=== PATIENT | male | born 1950 | race Caucasian/White ===

== ENCOUNTER 2020-01-11 02:38 | Outpatient (CLI) | payer MEDICARE, OTHER, SELFPAY ==
[2020-01-11 16:34] LABS: SARS-CoV-2 RNA PCR Negative
== END 2020-01-11 02:39 | disposition home or self-care (01) ==
LOC: ANHCOVIDDT 02:38
PROVIDERS: PCP Family Medicine; Visit Provider Internal Medicine Gastroenterology
DX: Z01.812 Encounter for preprocedural laboratory examination (principal); Z20.828 Contact with and (suspected) exposure to other viral communicable diseases
CPT/HCPCS: 87635; C9803; U0003

== ENCOUNTER 2020-01-13 00:24 | Day surgery (SDC) | payer MEDICARE, OTHER, SELFPAY ==
[2020-01-04 12:55] VITALS: BMI 35.4
--- NOTE | 2020-01-13 08:57 | PM.HPGS ---
History of Present Illness History of Present Illness Consent: Risks, benefits, and alternatives have been discussed and questions answered. Patient agrees to proceed with procedure. Chief complaint: History of Polyps Narrative: Marciano Pride is a 69 year old male here for screening colonoscopy. He has a history of polyps PMFSH Past Medical History Medical History Bladder cancer Diabetes Glaucoma History of bladder cancer Hypertension Family History Family History Mother Hypertension Family history of coronary artery disease Father Family history of diabetes mellitus in first degree relative Family history of coronary artery disease Other Diabetes mellitus Social History Social History Smoking status: Former smoker Second hand tobacco smoke exposure: No Smoking end date: 04/22/06 Alcohol intake: never Substance use: never Substance use type: does not use Last use: 2004 Living arrangements: with family Gender identity (if verbalized by the patient): Male Sexual Orientation (if Verbalized by the Patient): Straight or Heterosexual Spiritual care concerns: No Meds Home Medications and Allergies Home Medications Medication Instructions Recorded Confirmed Type fenofibrate 160 mg tablet 160 mg PO DAILY #90 tablet 05/14/19 01/04/20 Rx metformin 1,000 mg tablet 1,000 mg PO BID #180 tablet 05/14/19 01/04/20 Rx chlorthalidone 25 mg tablet 12.5 mg PO DAILY #45 tablet 07/28/19 01/04/20 Rx aspirin 325 mg tablet,delayed 325 mg PO DAILY #90 tablet 10/09/19 01/04/20 Rx release blood sugar diagnostic #100 each 10/09/19 Rx glimepiride 2 mg tablet 1 mg PO BID #90 tablet 10/09/19 01/04/20 Rx lancets 28 gauge #200 each 10/12/19 Rx lisinopril 30 mg tablet 30 mg PO DAILY #90 tablet 12/15/19 01/04/20 Rx simvastatin 40 mg tablet 40 mg PO DAILY #90 tablet 12/15/19 01/04/20 Rx sitagliptin 100 mg tablet 100 mg PO DAILY #90 tablet 12/15/19 01/04/20 Rx brimonidine-timolol [Combigan] 1 drp OPHTHALMIC (EYE) Q12H 01/04/20 01/04/20 History empagliflozin [Jardiance] 25 mg PO DAILY 01/04/20 01/04/20 History Allergies Allergy/AdvReac Type Severity Reaction Status Date / Time No Known Allergies Allergy Verified 01/04/20 12:47 Exam Resp: Auscultation: clear to auscultation bilaterally Cardio: Rate: regular rate Rhythm: regular rhythm GI: GI Palp: Yes Soft to palpation and No Tenderness to palpation present (GI) Assessment and Plan Assessment and plan (1) History of colon polyps: Code(s): Z86.010 - Personal history of colonic polyps Status: Acute Assessment and Plan: Colonoscopy with possible biopsy or polypectomy or cautery or injection of substances.
[2020-01-13 09:13] VITALS: BP 135/93; PULSE 74; RESP 18; TEMP 36.6; O2SAT 100; BMI 36.0
--- NOTE | 2020-01-13 09:31 | WPDANESEPPF ---
Anes - Initial Pre Proc Eval Procedure: Operation Date: 01/13/20 09:30 Proposed Procedures p Screening Colonoscopy - Virgilio Gonzalez MD Date/Time: 01/13/20 09:31 Surgeon: Virgilio Gonzalez MD Pre Op Diagnosis: History of Polyps Patient Data Age: 69 Gender: M Height: 5 ft 10 in Weight: 113.8 kg Last Vital Signs Temp 98 F 01/13/20 09:13 Pulse 74 01/13/20 09:13 Resp 18 01/13/20 09:13 BP 135/93 H 01/13/20 09:13 Pulse Ox 100 01/13/20 09:13 Allergies Allergy/AdvReac Type Severity Reaction Status Date / Time No Known Allergies Allergy Verified 01/13/20 08:59 Home Medications Medication Instructions Recorded Confirmed Type fenofibrate 160 mg tablet 160 mg PO DAILY #90 tablet 05/14/19 01/13/20 Rx metformin 1,000 mg tablet 1,000 mg PO BID #180 tablet 05/14/19 01/13/20 Rx chlorthalidone 25 mg tablet 12.5 mg PO DAILY #45 tablet 07/28/19 01/13/20 Rx aspirin 325 mg tablet,delayed 325 mg PO DAILY #90 tablet 10/09/19 01/13/20 Rx release blood sugar diagnostic #100 each 10/09/19 Rx glimepiride 2 mg tablet 1 mg PO BID #90 tablet 10/09/19 01/13/20 Rx lancets 28 gauge #200 each 10/12/19 Rx lisinopril 30 mg tablet 30 mg PO DAILY #90 tablet 12/15/19 01/13/20 Rx simvastatin 40 mg tablet 40 mg PO DAILY #90 tablet 12/15/19 01/13/20 Rx sitagliptin 100 mg tablet 100 mg PO DAILY #90 tablet 12/15/19 01/13/20 Rx brimonidine-timolol [Combigan] 1 drp OPHTHALMIC (EYE) Q12H 01/04/20 01/13/20 History empagliflozin [Jardiance] 25 mg PO DAILY 01/04/20 01/13/20 History Patient hx anesthesia problems: none Family hx anesthesia problems: none PMFSH Past Medical History Medical History Bladder cancer Diabetes Glaucoma History of bladder cancer Hypertension Family History Family History Mother Hypertension Family history of coronary artery disease Father Family history of diabetes mellitus in first degree relative Family history of coronary artery disease Other Diabetes mellitus Social History Social History Smoking status: Former smoker Second hand tobacco smoke exposure: No Smoking end date: 04/22/06 Alcohol intake: never Substance use: never Substance use type: does not use Last use: 2004 Living arrangements: with family Gender identity (if verbalized by the patient): Male Sexual Orientation (if Verbalized by the Patient): Straight or Heterosexual Spiritual care concerns: No Anes - Eval Final PreProcedure Day of Procedure 01/13/20 09:31 Patient weight: obese Heart: regular rate and rhythm Lungs: clear to auscultation Airway: Mallampati scale class II Neurological: alert and oriented Last oral intake: >/= 8 hours ASA classification: III Emergent: no Anesthetic plan: proceed Anesthesia type and monitoring: general GIVS and standard monitoring Informed Consent: The patient's anesthetic plan and its attendant risks and benefits were discussed with the patient/family/POA. Questions were solicited and answers provided to the satisfaction of the patient/family/POA.
[2020-01-13 09:33] LABS: Glucose Point of Care 162 (65-105)
[2020-01-13] MEDS: LACTATED RINGERS 1,000 ML 150 ML IV CONT (09:34)
[2020-01-13 10:02] VITALS: BP 90/42; PULSE 81; RESP 16; O2SAT 97
[2020-01-13 10:12] VITALS: BP 108/54; PULSE 71; RESP 16; O2SAT 99
[2020-01-13 10:22] VITALS: BP 126/74; PULSE 72; RESP 16; O2SAT 99
== END 2020-01-13 10:41 | disposition home or self-care (01) ==
PROVIDERS: PCP Family Medicine; Visit Provider Internal Medicine Gastroenterology
PROC: 0DJD8ZZ Inspection of Lower Intestinal Tract, Via Natural or Artificial Opening Endoscopic (ICD-10-PCS; CPT 45378; principal; 2020-01-13 09:30)
DX: Z12.11 Encounter for screening for malignant neoplasm of colon (principal); D12.8 Benign neoplasm of rectum; K57.30 Diverticulosis of large intestine without perforation or abscess without bleeding; Z86.010 Personal history of colon polyps; I10 Essential (primary) hypertension; E11.9 Type 2 diabetes mellitus without complications; Z85.51 Personal history of malignant neoplasm of bladder; H40.9 Unspecified glaucoma; Z87.891 Personal history of nicotine dependence; Z79.84 Long term (current) use of oral hypoglycemic drugs; Z79.82 Long term (current) use of aspirin; E66.9 Obesity, unspecified; Z68.36 Body mass index [BMI] 36.0-36.9, adult
CPT/HCPCS: 45385; 88305; J2001; J2704; J7120

== ENCOUNTER 2021-10-03 13:41 | Outpatient (CLI) | payer MEDICARE, OTHER, SELFPAY ==
--- NOTE | ~2021-10-03 | US_ITS ---
EXAMINATION: US soft tissue LE RT DATE: 10/03/2021 14:58 INDICATION: Localized swelling, mass and lump at the posterolateral right thigh. TECHNIQUE: Multiple grayscale and Doppler ultrasound images of the region of concern at the posterola teral right thigh were obtained. COMPARISON: None FINDINGS: There is a 2.7 x 2.0 x 0.9 cm heterogeneously hypoechoic lesion with posterior acoustic enhancement l ocated in the subcutaneous fat at the region of concern. Hypoechoic reticular pattern of edema in th e subcutaneous fat surrounding the lesion. There is also surrounding hyperemia on color Doppler suggesting inflammatory etiology. On cine graysc phuong images there is a hypoechoic tract extending to the skin surface. The superficial margin of the l esion is 3 mm from the skin surface. IMPRESSION: 1. The palpable abnormality corresponds to a 2.7 x 2.0 x 0.9 cm likely complex cystic lesion in the s ubcutaneous fat with surrounding hyperemia and edema suggesting inflammatory etiology and with a hypo echoic linear tract extending to the skin surface. Most likely differential would include epidermoid cyst, potentially superinfected; abscess, phlegmonous change or granulomatous reaction related to joanne or penetrating injury and hematoma or fat necrosis in the setting of prior trauma. Reviewed, dictated and finalized at location A. IMPRESSION: 1. The palpable abnormality corresponds to a 2.7 x 2.0 x 0.9 cm likely complex cystic lesion in the subcutaneous fat with surrounding hyperemia and edema sugg esting inflammatory etiology and with a hypoechoic linear tract extending to th e skin surface. Most likely differential would include epidermoid cyst, potenti ally superinfected; abscess, phlegmonous change or granulomatous reaction relat ed to prior penetrating injury and hematoma or fat necrosis in the setting of p rior trauma.
== END 2021-10-03 13:42 | disposition home or self-care (01) ==
PROVIDERS: PCP Family Medicine; Visit Provider Physician Assistant
DX: R22.41 Localized swelling, mass and lump, right lower limb (principal)
CPT/HCPCS: 76882

== ENCOUNTER 2021-10-20 12:40 | Outpatient (CLI) | payer MEDICARE, OTHER, SELFPAY ==
--- NOTE | ~2021-10-20 | US_ITS ---
EXAMINATION: US biopsy st muscle DATE: 10/20/2021 14:20 INDICATION: Subcutaneous mass at the posterolateral right thigh TECHNIQUE: The procedure including the risks and benefits was discussed with the patient. Risks discu ssed included bleeding and infection. The patient understood the risks and agreed to proceed. The sk in overlying the lateral right thigh was prepped and draped in usual sterile fashion. The mass is loc ated along the anterior margin of a region of reddish skin discoloration. An anterior to posterior ap proach was utilized. Anesthetic was administered with 1% lidocaine subcutaneously. An 18 gauge core biopsy needle was advanced under continuous ultrasound observation to the lesion of interest. 3 core biopsy specimens were obtained and placed in formalin. An additional 2 core biopsy specimens were ob tained with a 14-gauge core needle, one of which was sent for Gram stain and cultures. The needle wa s removed and the entry site was cleaned and dressed. Post procedure ultrasound demonstrated no hemo rrhage. FINDINGS: Ultrasound images demonstrate a 2.7 x 2.1 x 0.4 cm hypoechoic lesion in the superficial sub dermal fat at the region of concern. This has decreased approximately 50% in thickness since the prio r study at which time the lesion measured 2.7 x 2.0 x 0.9 cm. Subsequent images demonstrate the biops y needle advanced into the lesion. IMPRESSION: 1. Successful Ultrasound-guided biopsy of 2.7 x 2.1 x 0.4 cm hypoechoic lesion in the subdermal fat a t the posterolateral right thigh.. Reviewed, dictated and finalized at location A. IMPRESSION: 1. Successful Ultrasound-guided biopsy of 2.7 x 2.1 x 0.4 cm hypoechoic lesion in the subdermal fat at the posterolateral right thigh..
== END 2021-10-20 12:41 | disposition home or self-care (01) ==
PROVIDERS: PCP Family Medicine; Visit Provider Surgery
DX: R22.41 Localized swelling, mass and lump, right lower limb (principal)
CPT/HCPCS: 20206; 76942; 87070; 87075; 87205; 88305

== ENCOUNTER 2021-11-09 15:16 | Outpatient (CLI) | payer MEDICARE, OTHER, SELFPAY ==
--- NOTE | 2021-11-09 15:26 | ECG_ITS ---
Measurements Intervals [place] Rate: 90 P: -47 PA: 114 QRS: 82 QRSD: 115 T: 82 QT: 363 QTc: 445 Interpretive Statements SINUS RHYTHM WITH SHORT PA INTERVAL INTRAVENTRICULAR CONDUCTION DELAY BORDERLINE ST-T WAVE ABNORMALITY- DIFFUSE LEADS BASELINE ARTIFACT- I, II, AVR, AVL, AVF, V4-V6 BORDERLINE ECG Electronically Signed On 11-09-2021 16:26:09 CDT by Brayden Carbajal D.O.
== END 2021-11-09 15:17 | disposition home or self-care (01) ==
LOC: ANHSURGERY 15:20
PROVIDERS: PCP Family Medicine; Visit Provider Surgery
DX: Z01.810 Encounter for preprocedural cardiovascular examination (principal); I10 Essential (primary) hypertension; E11.9 Type 2 diabetes mellitus without complications
CPT/HCPCS: 93005

== ENCOUNTER 2021-11-15 00:59 | Day surgery (SDC) | payer MEDICARE, OTHER, SELFPAY ==
[2021-11-08 14:45] VITALS: BMI 31.4
--- NOTE | 2021-11-08 15:22 | PC.NURSE ---
Report to the Outpatient Waiting Room, entrance under the green pavilion located off [facility], at time 9:00 on date 11/15/21. OR Time: 11:00. - You and your visitor will be asked a series of questions to screen for COVID 19 for your protection. - Only one visitor is allowed at this time. - The patient visitor is requested to leave or wait in car when not with patient. - A mask is required within the hospital. Patients may have clear liquids (water, carbonated beverages, clear teas, apple juice) until 3 hours prior to surgery with a maximum of 20 ounces. - No food from midnight until time of surgery Take the following medications with a SIP of water the morning of surgery: NONE Medications to discontinue per physician: ASPIRIN Date to take last dose: CHECK WITH DR. VILLASENOR RE: 325MG DOSE (81MG IS OK TO CONTINUE TAKING) Please no make-up, nail amharic, hairspray, perfume, deodorant, or body powder the day of surgery. No jewelry (including any body piercings) or valuables the day of surgery, leave them at home. Please take a shower or bath the night before, or the morning of, surgery with an antibacterial soap. Wear comfortable, loose fitting clothing. - Jewelry must be removed prior to entering the operating room. Rings and piercings that are not removed may be cut off. - The hospital will not accept responsibility for valuables. - Please leave all valuables, including medications, at home the day of surgery. If you are going home after surgery, a licensed wagon driver must drive you home. - NO public transportation without another adult. - We recommend that an adult stay with you for 24 hours following discharge. - We also recommend that you do not drive, make important decision, drink alcoholic beverages, or take any drugs that were not prescribed by your health care provider for at least 24 hours after your discharge time. Follow any additional instructions given to you from your surgeon. If you or anyone in your household have experienced Covid symptoms in the past week, please notify your surgeon or the nurse liaison at the phone number below for possible testing. Telephone instructions given to PT - JORGITO TIWARI and asked if any additional questions and then verbalized understanding. Patient advised to call surgeon office or pre surgery nurse liaison [phone] if any additional questions.
--- NOTE | 2021-11-15 08:01 | WPDHPUPDATE1 ---
History and Physical Update Update Date/Time: 11/15/21 08:01 History and Physical has been reviewed, including an updated exam of the patient. There are NO changes in the patient's condition. Risks, benefits, and alternatives have been discussed and questions answered. Patient agrees to proceed with procedure.
[2021-11-15 09:10] VITALS: BP 145/73; PULSE 80; RESP 18; TEMP 36.6; O2SAT 100
[2021-11-15] MEDS: LACTATED RINGERS 1,000 ML 30 ML IV CONT ×2 (09:35→11:15)
[2021-11-15 09:41] LABS: Glucose Point of Care 154 mg/dl (65-105)
--- NOTE | 2021-11-15 10:13 | WPDANESEPPF ---
Anes - Initial Pre Proc Eval Procedure: Operation Date: 11/15/21 11:00 Proposed Procedures p Drainage and Incisional Biopsy of Right Thigh Mass - Dipesh Reyes MD Date/Time: 11/15/21 10:13 Surgeon: Dipesh Reyes MD Pre Op Diagnosis: Mass Right Thigh Patient Data Age: 71 Gender: M Height: 1.85 m Weight: 108.4 kg Last Vital Signs Temp 36.6 C 11/15/21 09:10 Pulse 80 11/15/21 09:10 Resp 18 11/15/21 09:10 BP 145/73 H 11/15/21 09:10 Pulse Ox 100 11/15/21 09:10 O2 Del Method Room Air 11/15/21 09:10 Allergies Allergy/AdvReac Type Severity Reaction Status Date / Time No Known Allergies Allergy Verified 11/15/21 09:21 Home Medications Medication Instructions Recorded Confirmed Type fenofibrate 160 mg tablet 160 mg PO DAILY #90 tabs 01/13/21 11/15/21 Rx dorzolamide 22.3 mg-timolol 6.8 1 drp ophthalmic (eye) BID #30 mL 02/17/21 11/15/21 Rx mg/mL eye drops aspirin 325 mg tablet,delayed 325 mg PO DAILY #90 tabs 03/31/21 11/15/21 Rx release chlorthalidone 25 mg tablet 12.5 mg PO DAILY #45 tabs 03/31/21 11/15/21 Rx lancets 28 gauge (FreeStyle #200 ea 03/31/21 11/15/21 Rx Lancets) lisinopril 30 mg tablet 30 mg PO DAILY #90 tabs 03/31/21 11/15/21 Rx metformin 1,000 mg tablet 1,000 mg PO BID #180 tabs 03/31/21 11/15/21 Rx simvastatin 40 mg tablet 40 mg PO DAILY #90 tabs 03/31/21 11/15/21 Rx sitagliptin 100 mg tablet (Januvia) 100 mg PO DAILY #90 tabs 03/31/21 11/15/21 Rx latanoprost 0.005 % eye drops 1 drp EACH EYE DAILY #7.5 mL 06/26/21 11/15/21 Rx (Xalatan) glimepiride 2 mg tablet 1 mg PO BID #90 tabs 07/10/21 11/15/21 Rx blood sugar diagnostic (FreeStyle #100 ea 09/11/21 11/15/21 Rx Lite Strips) empagliflozin 25 mg tablet 25 mg PO DAILY #90 tabs 09/11/21 11/15/21 Rx (Jardiance) Laboratory Tests 11/15/21 09:36 POC Capillary Glucose 154 mg/dl H mg/dl (65-105) Patient hx anesthesia problems: none Family hx anesthesia problems: none Results Review: All pre-operative results and documents have been reviewed as part of the pre-operative evaluation. [facility] Past Medical History Medical History Bladder cancer Chronic kidney disease, stage 3 unspecified Diabetes Glaucoma History of bladder cancer Hypertension Obesity Surgical History Surgical History History of bladder surgery 2007- Refugio Johnson Family History Family History Mother Hypertension Family history of coronary artery disease Father Family history of diabetes mellitus in first degree relative Family history of coronary artery disease Other Diabetes mellitus Social History Social History Social History: Patient drinks one diet Pepsi every 2-3 days. Smoking packs per day: 1 Smoking cigarettes per day: 20.0 Years smoked: 20 Smoking pack-years: 20.00 Smoking status: Former smoker Tobacco type: cigarettes Second hand tobacco smoke exposure: No Smoking end date: 04/22/97 Alcohol intake: current Alcohol use details: RARE Substance use: never Substance use type: does not use Last use: 2004 Living arrangements: with family Additional living arrangements comments: two people in the home. 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
[2021-11-15] MEDS: ceFAZolin 2 GM/D5W 50 ML 2 GM/50 ML BAG IVPB (10:35)
[2021-11-15] MEDS: BUPIVACAINE/EPINEPHRINE 0.25% 50 ML VIAL INFILTRATE (11:05)
[2021-11-15 11:15] VITALS: BP 116/64; PULSE 67; RESP 12; O2SAT 97
[2021-11-15 11:24] LABS: Glucose Point of Care 130 mg/dl (65-105)
--- NOTE | 2021-11-15 11:28 | W.PM.PROC2 ---
Procedure Note - Detailed Date of Procedure 11/15/21 Pre-op Diagnosis Soft tissue mass right posterior thigh Post-op Diagnosis Other (Infected epithelial inclusion cyst right posterior thigh) Procedure Performed Incisional drainage of infected cyst, incisional biopsy posterior thigh mass Surgeon Dipesh Reyes MD Director Digital [employer] Anesthesia General (G IV S) and Local (0.25% bupivacaine with epinephrine) Indications Patient is a 71-year-old man who presented with a soft tissue mass of the right posterior thigh. When I initially saw him this was a hardened mass with some bruising and hemosiderin deposition. He was sent for ultrasound-guided core biopsy. At the core biopsy there was either necrotic material or cyst material predominantly in the lesion. The core biopsy itself showed acute and chronic inflammation of skin and subcutaneous. Clinically, the lesion was concerning for a neoplasm. He does have some soft or fluctuant areas now to the mass. My suspicion is this is a chronically infected epithelial inclusion cyst. He is taken to surgery now for incisional biopsy as well as drainage. Findings Chronic inflammation but did appear to have some of the outer fibrotic material of an inclusion cyst. No purulent fluid was found. The inner aspect of the wound was chronically inflamed. No gross signs of malignancy were noted. Description of Procedure The patient was taken to surgery and anesthesia was introduced. He was placed in left lateral decubitus position with the right posterior thigh exposed. Prep and drape was carried out. I measured the lesion before proceeding. It was 5 x 4 cm. I infiltrated local all around the area of the lesion. I also infiltrated local over the apex of the soft tissue mass including the 2 fluctuant areas. I then made a longitudinal incision that included the fluctuant areas. I excised all the skin and portion of the wall of the mass. It did appear to be an inclusion cyst. This was sent to pathology in formalin. The underlying cavity was chronically inflamed. It was quite vascular. I initially packed it with 1/2 inch iodoform Nu Gauze. Unfortunately this bled through. I then tried to cauterize areas of the wound but it was still oozing blood. I then used Surgiflo and held gentle pressure. This was successful in achieving hemostasis. The wound was then dressed with fluffs and Medipore tape. The patient was taken to outpatient recovery in good condition. Sponge and needle counts were correct x2. Estimated Blood Loss -5 Drains No Packing No Pathology Yes (Soft tissue mass right posterior thigh) Complications No immediate complications Condition Stable Disposition Same day [facility] Billing Surgery - Charge Forward: Surgery Billing (Incision and drainage with incisional biopsy soft tissue mass right posterior thigh)
[2021-11-15 11:45] VITALS: BP 123/67; PULSE 72; RESP 12
[2021-11-15 12:05] VITALS: BP 118/62; PULSE 75; RESP 12
== END 2021-11-15 12:15 | disposition home or self-care (01) ==
PROVIDERS: PCP Family Medicine; Visit Provider Surgery
PROC: (CPT 11106; principal; 2021-11-15 11:00)
DX: L72.0 Epidermal cyst (principal); L08.9 Local infection of the skin and subcutaneous tissue, unspecified; I12.9 Hypertensive chronic kidney disease with stage 1 through stage 4 chronic kidney disease, or unspecified chronic kidney disease; E11.22 Type 2 diabetes mellitus with diabetic chronic kidney disease; N18.30 Chronic kidney disease, stage 3 unspecified; H40.9 Unspecified glaucoma; Z85.51 Personal history of malignant neoplasm of bladder; Z87.891 Personal history of nicotine dependence; E66.9 Obesity, unspecified; Z68.31 Body mass index [BMI] 31.0-31.9, adult; Z79.82 Long term (current) use of aspirin; Z79.84 Long term (current) use of oral hypoglycemic drugs
CPT/HCPCS: 11106; 82948; 88305; A9270; J0690; J2250; J2704; J3010; J7120

== ENCOUNTER 2022-01-15 08:13 | Outpatient (RCR) | payer MEDICARE, OTHER, SELFPAY ==
[2022-01-15 09:22] VITALS: BMI 33.5
--- NOTE | 2022-01-15 17:00 | WPDWOUNDNOTE ---
Wound Care Note Date/Time: 01/15/22 17:00 History: diabetic, Wound history: biopsy then incision drainage of cyst back right thigh--healing very slowly Wound approximation: No Wound width: wound 50% smaller than when seen in office Drainage: minimal Surrounding tissue appearance: healthy Tunneling: no Percentage granulation tissue: 100 Dressings: continue silver gel daily Assessment and Plan Assessment and plan (1) Open wound of leg: Code(s): S81.809A - Unspecified open wound, unspecified lower leg, initial encounter Status: Chronic Assessment and Plan: healing more appropriately. Cont silver gel daily and cover with bandaid. F/U in 3 weeks in office. (2) Epidermal inclusion cyst: Code(s): L72.0 - Epidermal cyst Status: Chronic Assessment and Plan: infected cyst noted on biopsy with subsequent incision and drainage leaving above open wound. No sign of cyst at present time.
== END 2022-04-02 08:39 | disposition home or self-care (01) ==
LOC: ANHWOC 08:13
PROVIDERS: PCP Family Medicine; Visit Provider Surgery
DX: S81.809D Unspecified open wound, unspecified lower leg, subsequent encounter (principal)
CPT/HCPCS: 99212; G0463

== ENCOUNTER 2023-05-01 12:35 | Outpatient (CLI) | payer MEDICARE, OTHER, SELFPAY ==
--- NOTE | 2023-05-01 12:50 | ECHO_ITS ---
Patient Info Name: Marciano Pride Age: 72 years : 1950 Gender: Male Ht: 71 in Wt: 245 lbs BSA: 2.40 m2 HR: 89 bpm BP: 150 / 76 mmHg Heart Rhythm: Sinus Rhythm Technical Quality: Fair Exam Date: 05/01/2023 12:55 PM Exam Location: Echo Lab Patient Status: Outpatient Admit Date: 05/01/2023 Staff Ordering Physician: Clive Cochran MD Batch Heat Treat Operator: Velma Krueger RDCS Attending Provider: Clive Cochran MD Referring Physician: Dimas MARLEY; Exam Type: CA echo doppler color flow Study Info Indications - murmur Complete two-dimensional, color flow and Doppler transthoracic echocardiogram is performed. Summary 1. Complete two-dimensional, color flow and Doppler transthoracic echocardiogram is performed. 2. Left ventricular chamber dimension is normal. 3. Left ventricular systolic function is normal, estimated at 60-65%. 4. There is mild concentric increased left ventricular wall thickness. 5. The left ventricular diastolic function is grade I diastolic dysfunction. 6. E/e' 11 is mildly elevated. 7. Left atrial chamber dimension is moderately enlarged. 8. Right atrial chamber dimension is moderately enlarged. 9. The aortic valve is not well visualized. Cannot determine number of aortic valve leaflets. 10. There is moderate aortic valve sclerosis. 11. There is mild aortic valve stenosis based on a peak velocity of 230 cm/s, mean gradient of 12 mmHg, and aortic valve area of 2.0 cm2. 12. Mobile mass attached to noncoronary cusp of aortic valve measuring 0.25 cm2 suggestive of vegetation. Consider SY if clinically indicated. 13. No pulmonary hypertension, estimated pulmonary arterial systolic pressure is 20 mmHg. 14. There is trivial pericardial effusion. Left Ventricle E/e' 11 is mildly elevated. Left ventricular chamber dimension is normal. Left ventricular systolic function is normal, estimated at 60-65%. There is mild concentric increased left ventricular wall thickness. The left ventricular diastolic function is grade I diastolic dysfunction. Right Ventricle Right ventricular systolic function is normal and with normal TAPSE 2.0 cm. Right ventricular chamber dimension is normal. Left Atria Left atrial chamber dimension is moderately enlarged. Right Atria Right atrial chamber dimension is moderately enlarged. Aortic Valve The aortic valve is not well visualized. Cannot determine number of aortic valve leaflets. There is mild aortic valve stenosis based on a peak velocity of 230 cm/s, mean gradient of 12 mmHg, and aortic valve area of 2.0 cm2. Mobile mass attached to noncoronary cusp of aortic valve measuring 0.25 cm2 suggestive of vegetation. Consider SY if clinically indicated. There is moderate aortic valve sclerosis. There is no aortic valve regurgitation. Pulmonic Valve There is no pulmonic regurgitation. Mitral Valve There is no mitral valve stenosis. There is no mitral valve regurgitation. Tricuspid Valve There is no tricuspid valve regurgitation. No pulmonary hypertension, estimated pulmonary arterial systolic pressure is 20 mmHg. Pericardium/Pleural There is trivial pericardial effusion. Inferior Vena Cava Normal inferior vena cava with >50% collapse upon inspiration consistent with normal right atrial pressure, 5 mmHg. Aorta The aortic root size at the sinus of Valsalva is normal. Left Ventricular Outflow Tract Name Value Normal LVOT 2
== END 2023-05-01 12:36 | disposition home or self-care (01) ==
LOC: ANHCARD 12:36
PROVIDERS: PCP Family Medicine; Visit Provider Family Medicine
DX: R01.1 Cardiac murmur, unspecified (principal); R93.1 Abnormal findings on diagnostic imaging of heart and coronary circulation; I35.8 Other nonrheumatic aortic valve disorders; I35.0 Nonrheumatic aortic (valve) stenosis; I31.39 Other pericardial effusion (noninflammatory)
CPT/HCPCS: 93306

== ENCOUNTER 2023-05-15 00:46 | Day surgery (SDC) | payer MEDICARE, OTHER, SELFPAY ==
[2023-05-14 13:36] VITALS: BMI 36.3
[2023-05-15] VITALS (8 sets, daily range): BP systolic 109–154; BP diastolic 63–77; PULSE 78–94; RESP 12–21; TEMP 37.4; O2SAT 96–100; BMI 36.3
--- NOTE | 2023-05-15 07:00 | ECHO_ITS ---
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 Procedure Details Risks/benefits/alternative to SY discuss with patient and he is agreeable to procedure. He is monitored with vitals, electrocardiographically and all within normal limits. Benzocaine spray to posterior oropharynx x 2 and viscous lidocaine given. Fentanyl 25 mcg and Versed 1 mg IV given for conscious sedation. SY probe advanced and he swallowed it without incident. Multiple images obtained. Agitated saline injection x 1 given. SY withdrawn and no blood on SY probe tip. He tolerated procedure well with no complications. Summary 1. Transesophageal echocardiogram. 2. Left ventricular chamber dimension is normal. 3. There is moderate concentric increased left ventricular wall thickness. 4. Left ventricular systolic function is normal with an ejection fraction of 60-65%. 5. The left ventricular diastolic function is indeterminate as it was not assessed.. 6. Left atrial chamber dimension is mildly enlarged. 7. Right atrial chamber dimension is mildly enlarged. 8. There is moderate aortic valve sclerosis. There is large sclerocalfication between right and non-coronary cusp. Attached to this is a small calcified mobile mass measuring 0.1 cm2, likely an extension of larger calcification. 9. There is mild aortic valve stenosis. 10. There is trace tricuspid valve regurgitation. Left Ventricle Left ventricular systolic function is normal with an ejection fraction of 60-65%. The left ventricular diastolic function is indeterminate as it was not assessed.. Transesophageal echocardiogram. Left ventricular chamber dimension is normal. There is moderate concentric increased left ventricular wall thickness. Right Ventricle Right ventricular chamber dimension is normal. Right ventricular systolic function is normal. Left Atria Left atrial chamber dimension is mildly enlarged. Right Atria Right atrial chamber dimension is mildly enlarged. Atrial Septum Agitated saline injection opacified right side cardiac chambers without shunt to left side cardiac chambers. Intact interatrial septum visualized by 2D and agitated saline imaging. Atrial Appendage There is no thrombus visualized in the left atrial appendage. Aortic Valve There is moderate aortic valve sclerosis. There is large sclerocalfication between right and non-coronary cusp. Attached to this is a small calcified mobile mass measuring 0.1 cm2, likely an extension of larger calcification. The aortic valve is trileaflet. There is mild aortic valve stenosis. There is no aortic valve regurgitation. Pulmonic Valve There is no pulmonic regurgitation. Mitral Valve There is no mitral valve stenosis. There is no mitral valve regurgitation. Tricuspid Valve There is trace tricuspid valve regurgitation. Pericardium/Pleural There is no pericardial effusion. Inferior Vena Cava Inferior vena cava is not well visualized. Aorta The aortic root size at the sinus of Valsalva
== END 2023-05-15 09:13 | disposition home or self-care (01) ==
PROVIDERS: PCP Family Medicine; Visit Provider Internal Medicine Cardiovascular Disease
PROC: (CPT 93312; principal; 2023-05-15 08:00)
DX: I33.0 Acute and subacute infective endocarditis (principal); I35.8 Other nonrheumatic aortic valve disorders; I35.0 Nonrheumatic aortic (valve) stenosis; I12.9 Hypertensive chronic kidney disease with stage 1 through stage 4 chronic kidney disease, or unspecified chronic kidney disease; E11.22 Type 2 diabetes mellitus with diabetic chronic kidney disease; N18.30 Chronic kidney disease, stage 3 unspecified; E78.2 Mixed hyperlipidemia; G47.33 Obstructive sleep apnea (adult) (pediatric); H40.9 Unspecified glaucoma; Z87.891 Personal history of nicotine dependence; Z79.84 Long term (current) use of oral hypoglycemic drugs; Z79.82 Long term (current) use of aspirin; Z79.85 Long-term (current) use of injectable non-insulin antidiabetic drugs
CPT/HCPCS: 93312; 93320; 93325; J2250; J3010; J7040

== ENCOUNTER 2024-11-18 09:51 | Outpatient (CLI) | payer MEDICARE, OTHER, SELFPAY ==
--- NOTE | ~2024-11-18 | US_ITS ---
EXAMINATION:US venous doppler LE BI INDICATION:Soft tissue disorder TECHNIQUE: Multiple grayscale, color flow and Doppler images of the right and left lower extremity de ep venous systems were obtained and reviewed. COMPARISON:No prior studies for comparison. FINDINGS: The common femoral, superficial femoral and popliteal veins demonstrate normal respiratory variation, augmentation and compressibility. Color flow is also seen within the posterior tibial, pe roneal, greater saphenous and profunda veins. IMPRESSION: 1: No lower extremity deep venous thrombosis. Reviewed, dictated and finalized at location B.
--- OUTSIDE RECORDS SUMMARY | 2024-11-18 10:16 | XMS_ITS | Continuity of Care Document ---
Author Name [facility] Organization [facility] Care Team Providers Care Fundraising Specialist Name Role Phone [facility] Unavailable Unavailable Medications Combined list of outpatient medications from Department of Defense and Veterans Affairs facilities.Medications provided include 1) outpatient medications from the last 15 months, and 2) patient-reported medications. Medication Details Route Status Patient Instructions Prescription Expires Prescription Number Last Dispense Date Ordering Provider Order Date Order Qty Source aspirin EC 325 mg tablet See dose instruct ions in comments , # 90 EA, 2 total refill(s ), Acute Complet ed 07/15/2023 3 2023 90.0 Ambulat ory Pharmac y aspirin EC 325 mg tablet = 1 tab(s), Oral, Daily, # 90 EA, 2 total refill(s ), Soft Stop Oral (given by mouth) Ordered 5 2024 90.0 Ambulat ory Pharmac y aspirin EC 325 mg tablet 325 mg, Oral, Daily, # 90 EA, 2 total refill(s ), Hard Stop Oral (given by mouth) Discont inued 10/30/2023 4 2023 90.0 Ambulat ory Pharmac y aspirin EC 325 mg tablet 325 mg, Oral, Daily, # 90 EA, 2 total refill(s ), Hard Stop Oral (given by mouth) Discont inued 06/29/2024 4 2024 90.0 Ambulat ory Pharmac y chlorthalid one 25 mg tablet See Instruct ions, # 45 EA, 3 total refill(s ), Hard Stop Complet ed 12/25/2023 3 2023 45.0 Ambulat ory Pharmac y chlorthalid one 25 mg tablet See dose instruct ions in comments , # 45 EA, 1 total refill(s ), Acute Complet ed 02/11/2023 3 2022 45.0 Ambulat ory Pharmac y dorzolamide -timolol 2%-0.5% eye drops [10mL] = 1 drop(s), # 20 mL, 2 total refill(s ), Hard Stop Ordered 04/06/2025 5 2024 20.0 Ambulat ory Pharmac y dorzolamide -timolol 2%-0.5% eye drops [10mL] = 1 drop(s), # 20 mL, 2 total refill(s ), Hard Stop Discont inued 06/29/2024 5 2024 20.0 Ambulat ory Pharmac y dorzolamide -timolol 2%-0.5% eye drops [10mL] See Instruct ions, # 20 mL, 3 total refill(s ), Hard Stop Discont inued 04/09/2024 4 2023 20.0 Ambulat ory Pharmac y dorzolamide -timolol 2.23%-0.68% eye drops [10mL] See Instruct ions, # 20 mL, 2 total refill(s ), Acute Complet ed 07/01/2023 3 2023 20.0 Ambulat ory Pharmac y dulaglutide 4.5 mg/0.5 mL pen [4EA=2mL] See Instruct ions, Inject 4.5 mg (0.5 mL) subcutan eously (under the skin) weekly, # 2 mL, 0 total refill(s ), Soft Stop Notes: refriger ate Discont inued 07/10/2024 5 2024 2.0 Ambulat ory Pharmac y dulaglutide 4.5 mg/0.5 mL pen [4EA=2mL] See Instruct ions, Inject 4.5mg subcutan eiously (under the skin) weekly, # 2 mL, 11 total refill(s ), Soft Stop Notes: refriger ate Ordered 5 2024 2.0 Ambulat ory Pharmac y empaglifloz in 25 mg tablet = 1 tab(s), Oral, Daily, # 90 EA, 2 total refill(s ), Soft Stop Oral (given by mouth) Ordered 5 2024 90.0 Ambulat ory Pharmac y fenofibrate 160 mg tablet 160 mg, Oral, Daily, # 90 EA, 3 total refill(s ), Hard Stop Oral (given by mouth) Complet ed 10/01/2023 4 2023 90.0 Ambulat ory Pharmac y fenofibrate 160 mg tablet 160 mg, Oral, Daily, # 90 EA, 2 total refill(s ), Hard Stop Oral (given by mouth) Complet ed 08/13/2024 4 2024 90.0 Ambulat ory Pharmac y fenofibrate 160 mg tablet = 1 tab(s), Oral, Daily, # 90 EA, 2 total refill(s ), Hard Stop Oral (given by mouth) Ordered 04/06/2025 5 2024 90.0 Ambulat ory Pharmac y Freestyle 28g lancets [100EA] See Instruct ions, # 100 EA, 3 total refill(s ), Hard Stop Complet ed 10/01/2023 4 2023 100.0 Ambulat ory Pharmac y Freestyle 28g lancets [100EA] See Instruct ions, # 100 EA, 3 total refill(s ), Hard Stop Complet ed 08/13/2024 4 2024 100.0 Ambulat ory Pharmac y freestyle lite (glucose) test strip [50EA] See Instruct ions, # 100 EA, 2 total refill(s ), Hard Stop Complet ed 12/28/2023 4 2023 100.0 Ambulat ory Pharmac y freestyle lite (glucose) test strip [50EA] = 1 EA, # 100 EA, 2 total refill(s ), Hard Stop Complet ed 09/29/2024 4 2024 100.0 Ambulat ory Pharmac y freestyle lite (glucose) test strip [50] See dose instruct ions in comments , # 100 EA, 1 total refill(s ), Acute Complet ed 04/26/2023 3 01/05/ 2024 100.0 Ambulat ory Pharmac y glimepiride 2 mg tablet See Instruct ions, # 90 EA, 3 total refill(s ), Hard Stop Discont inued 03/03/2024 4 2023 90.0 Ambulat ory Pharmac y glimepiride 2 mg tablet See Instruct ions, # 90 EA, 2 total refill(s ), Acute Complet ed 05/28/2023 3 2023 90.0 Ambulat ory Pharmac y glimepiride 2 mg tablet See Instruct ions, # 90 EA, 3 total refill(s ), Hard Stop Ordered 03/02/2025 5 2024 90.0 Ambulat ory Pharmac y glucose test strip (freestyle lite) See Instruct ions, # 100 EA, 3 total refill(s ), Hard Stop Ordered 06/04/2025 5 2024 100.0 Ambulat ory Pharmac y hydroCHLORO thiazide 12.5 mg tablet = 1 tab(s), Oral, Daily, # 30 EA, 2 total refill(s ), Soft Stop Oral (given by mouth) Discont inued 07/10/2024 5 2024 30.0 Ambulat ory Pharmac y hydroCHLORO thiazide 12.5 mg tablet = 1 tab(s), Oral, Daily, # 90 EA, 3 total refill(s ), Soft Stop Oral (given by mouth) Ordered 5 2024 90.0 Ambulat ory Pharmac y Jardiance 25 mg tablet 25 mg, Oral, Daily, # 90 EA, 2 total refill(s ), Hard Stop Oral (given by mouth) Discont inued 10/30/2023 4 2023 90.0 Ambulat ory Pharmac y Jardiance 25 mg tablet 25 mg, Oral, Daily, # 90 EA, 2 total refill(s ), Hard Stop Oral (given by mouth) Discont inued 06/29/2024 4 2024 90.0 Ambulat ory Pharmac y Jardiance 25 mg tablet See dose instruct ions in comments , # 90 EA, 2 total refill(s ), Acute Complet ed 07/15/2023 3 2023 90.0 Ambulat ory Pharmac y lancet freestyle 28g See Instruct ions, # 100 EA, 2 total refill(s ), Soft Stop Discont inued 09/16/2024 5 2024 100.0 Ambulat ory Pharmac y lancet freestyle 28g See Instruct ions, # 100 EA, 2 total refill(s ), Soft Stop Ordered 5 2024 100.0 Ambulat ory Pharmac y latanoprost 0.005% eye drops [2.5mL] See dose instruct ions in comments , # 8 mL, 3 total refill(s ), Acute Complet ed 09/18/2023 3 2023 7.5 Ambulat ory Pharmac y latanoprost 0.005% eye drops [2.5mL] = 1 drop(s), Eye-Both , Daily, # 7.5 mL, 3 total refill(s ), Hard Stop Both eyes Ordered 03/02/2025 5 2024 7.5 Ambulat ory Pharmac y latanoprost 0.005% eye drops [2.5mL] = 1 drop(s), Eye-Both , Daily, # 8 mL, 3 total refill(s ), Hard Stop Both eyes Discont inued 03/03/2024 4 2023 7.5 Ambulat ory Pharmac y lisinopril 30 mg tablet See Instruct ions, # 90 EA, 2 total refill(s ), Acute Complet ed 07/15/2023 3 2023 90.0 Ambulat ory Pharmac y lisinopril 30 mg tablet See Instruct ions, Oral, Daily, # 90 EA, 2 total refill(s ), Hard Stop Oral (given by mouth) Discont inued 10/30/2023 4 2023 90.0 Ambulat ory Pharmac y lisinopril 30 mg tablet 30 mg, Oral, Daily, # 90 EA, 2 total refill(s ), Hard Stop Oral (given by mouth) Discont inued 06/29/2024 4 2024 90.0 Ambulat ory Pharmac y lisinopril 30 mg tablet = 1 tab(s), Oral, Daily, # 90 EA, 2 total refill(s ), Soft Stop Oral (given by mouth) Ordered 5 2024 90.0 Ambulat ory Pharmac y metFORMIN 1000 mg tablet See dose instruct ions in comments , # 180 EA, 1 total refill(s ), Acute Complet ed 02/11/2023 3 2022 180.0 Ambulat ory Pharmac y metFORMIN 1000 mg tablet See Instruct ions, # 180 EA, 3 total refill(s ), Hard Stop Discont inued 10/30/2023 4 2023 180.0 Ambulat ory Pharmac y metFORMIN 1000 mg tablet = 1 tab(s), Oral, BID, # 180 EA, 3 total refill(s ), Soft Stop Oral (given by mouth) Ordered 5 2024 180.0 Ambulat ory Pharmac y metFORMIN 1000 mg tablet 1000 mg, Oral, BID, # 180 EA, 3 total refill(s ), Hard Stop Oral (given by mouth) Discont inued 09/15/2024 5 2024 180.0 Ambulat ory Pharmac y phenazopyri dine 100 mg oral tablet *NOTE DOSE* TAKE TWO TABLETS BY MOUTH TWICE A DAY, # 60 EA, 2 total refill(s ), Acute Complet ed 11/22/2022 2 2022 60.0 Ambulat ory Pharmac y rosuvastati n 10 mg tablet = 1 tab(s), Oral, Daily, # 90 EA, 3 total refill(s ), Hard Stop Oral (given by mouth) Ordered 04/13/2025 5 2024 90.0 Ambulat ory Pharmac y simvastatin 40 mg tablet See Instruct ions, # 90 EA, 2 total refill(s ), Acute Complet ed 07/15/2023 3 2023 90.0 Ambulat ory Pharmac y simvastatin 40 mg tablet 40 mg, Oral, Daily, # 90 EA, 2 total refill(s ), Hard Stop Oral (given by mouth) Discont inued 10/30/2023 4 2023 90.0 Ambulat ory Pharmac y simvastatin 40 mg tablet 40 mg, Oral, Daily, # 90 EA, 2 total refill(s ), Hard Stop Oral (given by mouth) Discont inued 04/13/2024 4 2023 90.0 Ambulat ory Pharmac y Thalitone 15 mg tablet 15 mg, Oral, Daily, # 90 EA, 3 total refill(s ), Hard Stop Oral (given by mouth) Discont inued 03/03/2024 4 2023 90.0 Ambulat ory Pharmac y Thalitone 15 mg tablet = 1 tab(s), Oral, Daily, # 90 EA, 3 total refill(s ), Hard Stop Oral (given by mouth) Ordered 03/02/2025 5 2024 90.0 Ambulat ory Pharmac y Trulicity Pen 0.75 mg/0.5 mL [4EA=2mL] See dose instruct ions in comments , # 2 mL, 3 total refill(s ), Acute Discont inued 12/05/2022 3 2022 2.0 Ambulat ory Pharmac y Trulicity Pen 1.5 mg/0.5 mL [4EA=2mL] See Instruct ions, 0, # 2 mL, 2 total refill(s ), Hard Stop Discont inued 11/08/2023 3 2023 2.0 Ambulat ory Pharmac y Trulicity Pen 3 mg/0.5 mL [4EA=2mL] See Instruct ions, # 6 mL, 3 total refill(s ), Hard Stop Notes: refriger ate Complet ed 05/08/2024 4 2024 6.0 Ambulat ory Pharmac y Trulicity Pen 3 mg/0.5 mL [4EA=2mL] 3 mg, SubCutan eous, every week, # 2 mL, 0 total refill(s ), Hard Stop Notes: refriger ate SubCut aneous (under the skin) Complet ed 06/17/2024 5 2024 2.0 Ambulat ory Pharmac y Trulicity Pen 3 mg/0.5 mL [4EA=2mL] See Instruct ions, # 2 mL, 2 total refill(s ), Hard Stop Discont inued 11/08/2023 3 2023 2.0 Ambulat ory Pharmac y Trulicity Pen 3 mg/0.5 mL [4EA=2mL] See Instruct ions, # 2 mL, 2 total refill(s ), Hard Stop Notes: refriger ate Discont inued 04/09/2023 3 2022 2.0 Ambulat ory Pharmac y Allergies, Adverse Reactions, Alerts Combined list of allergies from Department of Defense and Veterans Affairs facilities. It does not include entries that were removed or entered in error. Substance Category Reaction Severity Reaction type Status Date Reported Comments Source No Known Allergies Drug allergy (disorder) active 07/03/2010 [employer] [place] SHAHEENB ([facility] [place] Immunizations Combined list of available immunizations from the Department of Defense and Veterans Affairs facilities. Immunization Series Date Given Administered By Site Reaction Lot Number CVX Code Drug Print Support Specialist Status Comments Source COVID-19 vaccine(Comir katelyn 12y+) 2022 OBIECIAFA KERRY Crane han, left (delt oid) [id number] [employer] complet ed COVID-19 vaccine(C omirnaty 12y+) 02/25/23 Given 0055C-3 [facility] [place] influenza virus vaccine, inactivated 2022 OBIECIAFA KERRY Crane han, left (delt oid) [id number] 197 sanofi pasteur complet ed influenza virus vaccine, inactivat ed 02/25/23 Given 0055C-3 [facility] [place] COVID-19, mRNA, LNP-S, PF, 100 mcg or 50 mcg dose 2020 Rodrigo LAUREANO [employer] (MOD) Not Given COVID-19, mRNA, LNP-S, PF, 100 mcg or 50 mcg dose DoD influenza, injectable, quadrivalent- pf 2020 zzLef t Arm [id number] Gl[employer]SmithK[employer] ne complet ed influenza , injectabl e, quadrival ent-pf 02/02/21 Given Ambulat ory Pharmac y Influenza, injectable, quadrivalent, preservative free 1 2020 Unknown, [facility] [id number] Influ[facility] , injectabl e, quadrival ent, preservat ny free DoD COVID-19, mRNA, LNP-S, PF, 100 mcg or 50 mcg dose 2020 MANJARREZ, () Not Given COVID-19, mRNA, LNP-S, PF, 100 mcg or 50 mcg dose DoD COVID-19, mRNA, LNP-S, PF, 100 mcg or 50 mcg dose 2020 RANJITH, Moderna [employer] (MOD) Not Given COVID-19, mRNA, LNP-S, PF, 100 mcg or 50 mcg dose DoD zoster vaccine, inactivated 2020 zzLef t Arm [id number] GlaxoSmithKli ne complet ed zoster vaccine, inactivat ed 06/15/20 Given Ambulat ory Pharmac y zoster vaccine recombinant 1 2020 Unknown, [facility] [id number] zoster vaccine recombina nt DoD zoster vaccine, inactivated 2019 zzLef t Arm [id number] GlaxoSmithKli ne complet ed zoster vaccine, inactivat ed 04/13/20 Given Ambulat ory Pharmac y zoster vaccine recombinant 1 2019 Unknown, Provider [id number] [facility] (SK) complet ed zoster vaccine recombina nt DoD tetanus-dipht h toxoids (Td) adult/adol 2019 zzLef t Arm [id number] sanofi pasteur complet ed tetanus-d iphth toxoids (Td) adult/ado l 04/04/20 Given Ambulat ory Pharmac y pneumococcal polysaccharid e, 23 valent 2019 zzLef t Arm [id number] [employer]ck & [employer] Inc complet ed pneumococ jj polysacch aride, 23 valent 04/04/20 Given Ambulat ory Pharmac y tetanus and diphtheria toxoids, adsorbed, preservative free, for adult use (2 Lf of tetanus toxoid and 2 Lf of diphtheria toxoid) 1 2019 Unknown, Provider [id number] 09 Sanofi Pasteur ([facility]) complet ed tetanus and diphtheri a toxoids, adsorbed, preservat ny free, for adult use (2 Lf of tetanus toxoid and 2 Lf of diphtheri a toxoid) DoD pneumococcal polysaccharid e vaccine, 23 valent 1 2019 Unknown, Provider [id number] Merck (MSD) complet ed pneumococ jj polysacch aride vaccine, 23 valent DoD influenza virus vaccine, inactivated 2019 [facility] Arm [id number] [employer] complet ed influenza virus vaccine, inactivat ed 02/26/20 Given Ambulat ory Pharmac y Influenza vaccine, quadrivalent, adjuvanted (Fluad) 1 2019 Unknown, Provider [id number] 205 [employer] (SEQ) complet ed Influenza vaccine, quadrival ent, adjuvante d (Fluad) DoD influenza, injectable, quadrivalent- pf 2018 [facility] Arm [id number] 150 [employer] complet ed influenza , injectabl e, quadrival ent-pf 02/27/19 Given Ambulat ory Pharmac y Influenza, injectable, quadrivalent, preservative free 1 2018 Unknown, Provider [id number] 150 [employer] (SEQ) complet ed Influenza , injectabl e, quadrival ent, preservat ny free DoD influenza, injectable, quadrivalent- pf [id number] [employer] complet ed influenza , injectabl e, quadrival ent-pf 02/17/18 Given Ambulat ory Pharmac y Influenza, injectable, quadrivalent, preservative free 1 2017 Unknown, Provider [id number] 150 [employer] (SEQ) complet ed Influenza , injectabl e, quadrival ent, preservat ny free DoD Influenza, inj, MDCK, quadrivalent- pf 2016 [facility] Arm [id number] 171 [employer] complet ed Influenza , inj, MDCK, quadrival ent-pf 02/25/17 Given Ambulat ory Pharmac y Influenza, injectable, Madin Cassy Canine Kidney, preservative free, quadrivalent 1 2016 Unknown, Provider [id number] 171 [employer] (SEQ) complet ed Influenza , injectabl e, Madin [place] Canine Kidney, preservat ny free, quadrival ent DoD influenza, seasonal, injectable-pf 2015 zzLef t Arm [id number] [employer] complet ed influenza , seasonal, injectabl e-pf 03/06/16 Given Ambulat ory Pharmac y pneumococcal 13-valent conjugate (PCV13) 2015 zzLef t Arm [id number] [place] complet ed pneumococ jj 13-valent conjugate (PCV13) 03/06/16 Given Ambulat ory Pharmac y pneumococcal conjugate vaccine, 13 valent 1 2015 Unknown, Provider [id number] [facility] ([facility]) complet ed pneumococ jj conjugate vaccine, 13 valent DoD Influenza, seasonal, injectable, preservative free 1 2015 Unknown, Provider [id number] [employer] (SEQ) complet ed Influenza , seasonal, injectabl e, preservat ny free DoD pneumococcal polysaccharid e, 23 valent 2014 zzLef t Arm [id number] 33 Merck & Company Inc complet ed pneumococ jj polysacch aride, 23 valent 03/28/15 Given Ambulat ory Pharmac y pneumococcal polysaccharid e vaccine, 23 valent 1 2014 Unknown, Provider [id number] 33 Merck (MSD) complet ed pneumococ jj polysacch aride vaccine, 23 valent DoD influenza, seasonal, injectable-pf 2014 zzLef t Arm [id number] 140 [employer] complet ed influenza , seasonal, injectabl e-pf 02/07/15 Given Ambulat ory Pharmac y Influenza, seasonal, injectable, preservative free 1 2014 Unknown, Provider [id number] [employer] (CSL) complet ed Influenza , seasonal, injectabl e, preservat ny free DoD influenza, seasonal, injectable-pf 2013 zzRig ht Arm [id number] 140 Novartis [employer] complet ed influenza , seasonal, injectabl e-pf 02/03/14 Given Ambulat ory Pharmac y zoster vaccine live 2013 zzLef t Arm [id number] 121 Merck & Company Inc complet ed zoster vaccine live 10/15/14 Given Ambulat ory Pharmac y zoster vaccine, live 1 2013 Unknown, Provider [id number] Merck (MSD) complet ed zoster vaccine, live DoD Influenza, seasonal, injectable, preservative free 1 2013 Unknown, Provider [id number] 140 Novartis Zidoff [employer] Nuha. (NOV) complet ed Influenza , seasonal, injectabl e, preservat ny free DoD influenza, seasonal, injectable-pf 2012 zzRig ht Arm [id number] 140 sanofi pasteur complet ed influenza , seasonal, injectabl e-pf 02/06/13 Given Ambulat ory Pharmac y Influenza, seasonal, injectable, preservative free 14 2012 Unknown, Provider [id number] Sanofi Pasteur ([facility]) complet ed Influenza , seasonal, injectabl e, preservat ny free DoD influenza, seasonal, injectable 2011 zzRig ht Arm [id number] sanofi pasteur complet ed influenza , seasonal, injectabl e 01/23/12 Given Ambulat ory Pharmac y Influenza, seasonal, injectable 13 2011 Unknown, Provider [id number] 141 Sanofi Pasteur ([facility]) complet ed Influenza , seasonal, injectabl e DoD influenza virus vaccine,split 2009 zzLef t Arm [id number] 15 [employer] complet ed influenza virus vaccine,s plit 03/29/10 Given Ambulat ory Pharmac y influenza virus vaccine, split virus (incl. purified surface antigen)-reti red CODE 1 2009 Unknown, Provider [id number] 15 [employer] (CS) complet ed influenza virus vaccine, split virus (incl. purified surface antigen)- retired CODE DoD Novel influenza-H1N 1-09, injectable 2009 zzRig ht Arm [id number] sanofi pasteur complet ed Novel influenza -F8O3-28, injectabl e 11/02/09 Given Ambulat ory Pharmac y Novel influenza-H1N 1-09, injectable 1 2009 Unknown, Provider [id number] Sanofi Pasteur ([facility]) complet ed Novel influenza -C3P2-20, injectabl e DoD influenza virus vaccine,split 2008 zzLef t Arm [id number] 15 sanofi pasteur complet ed influenza virus vaccine,s plit 02/02/09 Given Ambulat ory Pharmac y influenza virus vaccine, split virus (incl. purified surface antigen)-reti red CODE 1 2008 Unknown, Provider [id number] 15 Sanofi Pasteur ([facility]) complet ed influenza virus vaccine, split virus (incl. purified surface antigen)- retired CODE DoD influenza virus vaccine,split 2007 zzLef t Arm [id number] 15 GlaxoSmithKli ne complet ed influenza virus vaccine,s plit 03/03/08 Given Ambulat ory Pharmac y influenza virus vaccine, split virus (incl. purified surface antigen)-reti red CODE 1 2007 Unknown, Provider [id number] 15 [facility] ([facility]B) complet ed influenza virus vaccine, split virus (incl. purified surface antigen)- retired CODE DoD influenza virus vaccine,split 2006 zzLef t Arm 15 complet ed influenza virus vaccine,s plit 03/11/07 Given Ambulat ory Pharmac y influenza virus vaccine, split virus (incl. purified surface antigen)-reti red CODE 2 2006 Unknown, Provider 15 Transcribed (TRS) complet ed influenza virus vaccine, split virus (incl. purified surface antigen)- retired CODE DoD tetanus, diphtheria, acellular pertu is 2006 115 complet ed tetanus, diphtheri a, acellular pertussis 12/06/06 Given Ambulat ory Pharmac y tetanus toxoid, reduced diphtheria toxoid, and acellular pertu is vaccine, adsorbed 1 2006 Unknown, Provider 115 Transcribed (TRS) complet ed tetanus toxoid, reduced diphtheri a toxoid, and acellular pertussis vaccine, adsorbed DoD influenza virus vaccine,split 2002 [id number] 15 complet ed influenza virus vaccine,s plit 02/10/03 Given Ambulat ory Pharmac y influenza virus vaccine, split virus (incl. purified surface antigen)-reti red CODE 1 2002 Unknown, Provider 15 Transcribed (TRS) complet ed influenza virus vaccine, split virus (incl. purified surface antigen)- retired CODE DoD influenza virus vaccine,split 2001 15 complet ed influenza virus vaccine,s plit 03/02/02 Given Ambulat ory Pharmac y influenza virus vaccine, split virus (incl. purified surface antigen)-reti red CODE 1 2001 Unknown, Provider 15 () complet ed influenza virus vaccine, split virus (incl. purified surface antigen)- retired CODE DoD influenza virus vaccine,split 2000 15 complet ed influenza virus vaccine,s plit 03/03/01 Given Ambulat ory Pharmac y influenza virus vaccine, split virus (incl. purified surface antigen)-reti red CODE 1 2000 Unknown, Provider 15 () complet ed influenza virus vaccine, split virus (incl. purified surface antigen)- retired CODE DoD influenza virus vaccine,split 1998 [id number] 15 [employer] complet ed influenza virus vaccine,s plit 02/04/99 Given Ambulat ory Pharmac y influenza virus vaccine, split virus (incl. purified surface antigen)-reti red CODE 1 1998 Unknown, Provider [id number] [facility] virus vaccine, split virus (incl. purified surface antigen)- retired CODE DoD influenza virus vaccine, whole virus [id number] 16 [employer] complet ed influenza virus vaccine, whole virus 02/18/98 Given Ambulat ory Pharmac y influenza virus vaccine,split [id number] 15 [employer] complet ed influenza virus vaccine,s plit 02/18/98 Given Ambulat ory Pharmac y influenza virus vaccine, split virus (incl. purified surface antigen)-reti red CODE 1 1997 Unknown, Provider [id number] [facility] influenza virus vaccine, split virus (incl. purified surface antigen)- retired CODE DoD influenza virus vaccine, whole virus 1 1997 Unknown, Provider [id number] 16 [facility] influenza virus vaccine, whole virus DoD influenza virus vaccine, whole virus 1996 [id number] 16 [employer] complet ed influenza virus vaccine, whole virus 03/15/97 Given Ambulat ory Pharmac y influenza virus vaccine,split 1996 [id number] 15 [employer] complet ed influenza virus vaccine,s plit 03/15/97 Given Ambulat ory Pharmac y influenza virus vaccine, split virus (incl. purified surface antigen)-reti red CODE 1 1996 Unknown, Provider [id number] 15 [place] (CON) complet ed influenza virus vaccine, split virus (incl. purified surface antigen)- retired CODE DoD influenza virus vaccine, whole virus 1 1996 Unknown, Provider [id number] 16 [place] (CON) complet ed influenza virus vaccine, whole virus DoD hepatitis A adult vaccine 1996 [id number] [facility] A adult vaccine 03/03/97 Given Ambulat ory Pharmac y tetanus-dipht h toxoids (Td) adult/adol 1996 [id number] [facility] complet ed tetanus-d iphth toxoids (Td) adult/ado l 03/03/97 Given Ambulat ory Pharmac y tetanus and diphtheria toxoids, adsorbed, preservative free, for adult use (2 Lf of tetanus toxoid and 2 Lf of diphtheria toxoid) 1 1996 Unknown, Provider [id number] 09 [facility] (CON) complet ed tetanus and diphtheri a toxoids, adsorbed, preservat ny free, for adult use (2 Lf of tetanus toxoid and 2 Lf of diphtheri a toxoid) DoD hepatitis A vaccine, adult dosage 2 1996 Unknown, Provider [id number] 52 [facility] ([place]) complet ed hepatitis A vaccine, adult dosage DoD vaccinia (smallpox) vaccine 1979 75 complet ed vaccinia (smallpox ) vaccine 08/21/79 Given Ambulat ory Pharmac y vaccinia (smallpox) vaccine 1 1979 Unknown, Provider 75 () complet ed vaccinia (smallpox ) vaccine DoD typhoid, parenteral, AKD 1974 53 complet ed typhoid, parentera l, AKD 05/23/74 Given Ambulat ory Pharmac y typhoid vaccine, parenteral, acetone-kille d, dried ([place] ) 1 1974 Unknown, Provider 53 () complet ed typhoid vaccine, parentera l, acetone-k illed, dried ([place] ) DoD poliovirus vaccine, live, oral 1972 02 complet ed polioviru s vaccine, live, oral 10/25/72 Given Ambulat ory Pharmac y trivalent poliovirus vaccine, live, oral 1 1972 Unknown, Provider 02 () complet ed trivalent polioviru s vaccine, live, oral DoD measles/mumps /rubella virus vaccine 1972 03 complet ed measles/m umps/rube lla virus vaccine 09/16/72 Given Ambulat ory Pharmac y measles, mumps and rubella virus vaccine 1 1972 Unknown, Provider 03 () complet ed measles, mumps and rubella virus vaccine DoD yellow fever vaccine 1972 37 complet ed yellow fever vaccine 08/20/72 Given Ambulat ory Pharmac y yellow fever vaccine 1 1972 Unknown, Provider 37 () complet ed yellow fever vaccine DoD Encounters Combined list of: 1) Encounters from [facility] facilities going backup to the last 18 months, not all [place] inpatient encounters are included; 2) Encounters from the Department of [facility] facilities going backup to 280 months. Location Location Details Encounter Type Encounter Number Reason For Visit Attending Provider ADM Date DC Date Status Disposition Source [facility] Outpatient Encounter [id number] 01/03 [facility] Procedures Combined list of: 1) Procedures from Department of [facility] facilities going back up to thelast 18 months, not all [place] non-surgical procedures are included; 2) All procedures from the Department of [facility] facilities. Procedure Procedure Type Code Date Perfomer Comments Sour e VISUAL FIELD EXAM,UNILAT/BI,INTERP& REP;EXT EXM(EG,GOLDMANN VIS FLD,AT LEAST 3 ISOP PLOT&STAT DET W/IN CHRISTINA 30DEG/QUANT,AUTO THRSH AMBERLY,OCT G-1,32/42,HUMP VIS FLD ANAL FULL THRSH 30-2,24-2, OR 30/60-2) 05/01/2004 Do D GONIOSCOPY (SEPARATE PROCEDURE) 04/27/2004 [facility] VISUAL FIELD EXAM,UNILAT/BI,INTERP& REP;EXT EXM(EG,GOLDMANN VIS FLD,AT LEAST 3 ISOP PLOT&STAT DET W/IN CHRISTINA 30DEG/QUANT,AUTO THRSH AMBERLY,OCT G-1,32/42,HUMP VIS FLD ANAL FULL THRSH 30-2,24-2, OR 30/60-2) 04/05/2004 Do D OPHTHALMOLOGICAL SERVICES: MEDICAL EXAMINATION AND EVALUATION, WITH INITIATION OR CONTINUATION OF DIAGNOSTIC AND TREATMENT PROGRAM; INTERMEDIATE, ESTABLISHED PATIENT 03/20/2004 DoD VISUAL FIELD EXAM,UNILAT/BI,INTERP& REP;EXT EXM(EG,GOLDMANN VIS FLD,AT LEAST 3 ISOP PLOT&STAT DET W/IN CHRISTINA 30DEG/QUANT,AUTO THRSH AMBERLY,OCT G-1,3242,HUMP VIS FLD ANAL FULL THRSH 30-2,24-2, OR 60-2) 09/16/2003 Do D OPHTHALMOLOGICAL SERVICES: MEDICAL EXAMINATION AND EVALUATION, WITH INITIATION OR CONTINUATION OF DIAGNOSTIC AND TREATMENT PROGRAM; COMPREHENSIVE, ESTABLISHED PATIENT, 1 OR MORE VISITS 06/22/2002 [facility] OTHER LOCAL EXCISION OR DESTRUCTION OF LESION OR TISSUE OF SKIN AND SUBCUTANEOUS TISSUE 03/07/1995 DoD No data available for this section Ambulatory Pharmacy Social History Combined list of available smoking, tobacco, and other social history from [facility] and [facility] facilities. Social History Type Response Date Comment Sour e This section is an empty social history section. DoD Assessment and Plan Combined list of future care activities from [facility] Defense and [facility] facilities (e.g., assessment and plan notes, appointments, orders, and referrals). Additional future care activities may be listed in the Plan of Care section. Result Assessment and Plan Date Source Assessment and Plan Extracted from:Title : [employer] HD Flu and Covid Pfizer Comirnaty 12yr+ Author: SAMIA SOTELO Date: 02/25/23 Adult Screening Questionnaire 1. Are you sick today? No 2. Do you have allergies to medication food, a vaccine component, or latex? No 3. Have you ever had a serious reaction after receiving a vaccination? No 4. 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 No Are you on [facility] aspirin therapy? No 5. Do you, or a close family member, have cancer, leukemia, HIV/AIDS, or any other immune system problems? No 6. In the past 3 months, have you taken medications, that effect your immune system, such as prednisone, other steroids, or anti-cancer drugs; drugs for treatment of Rheumatoid Arthritis, Crohn's disease, or psoriasis; or have you had radiation treatment? No 7. Have you had a seizure or a brain or other nervous system problems? No 8. During the past year, have you received a transfusion of blood or blood products, or been given immune (gamma) globulin, or an anti-viral drug? No 9. Have you received any vaccinations in the past month? No More details of the vaccination administered can be found in the patient s Immunization History under the Immunizations tab. 11/18/[id number] [place] [address] Functional Status Combined list of recent functional and cognitive assessments recorded at [facility] ([place]).VA Functional [place] Measurement (FIM) Scale: 1 = Total Assistance (Subject = 0% +), 2 = Maximal Assistance (Subject = 25% +), 3 = Moderate Assistance (Subject = 50% +), 4 = Minimal Assistance (Subject = 75% +), 5 = Supervision, 6 = Modified [place] (Device), 7 = Complete [place] (Timely, Safely). Assessment Date/Time Source Assessment Type Assessment Skill Assessment Score Assessment Details No data available for this section
--- OUTSIDE RECORDS SUMMARY | 2024-11-18 10:17 | XMS_ITS | Continuity of Care Document ---
Author Organization [facility] Address [address] [place] [address] Phone Care Team Providers Care Parachute Packer Name Role Phone Tobin Aldana Unavailable Unavailable [...] Diagnoses Date Provider Providers Copied on Encounter [facility], [address], [place], [place], [address], [place] tel:[phone] [facility] No Information Oct-1 4-201 0 Katya Rudd. [address] , [address], [place], [place], [facility], [place]. tel:[phone] [facility], [address] [place] [address] [address], [place], [place], [address], [place] tel:[phone] [facility] No Information Sep-2 2-201 0 Katya Ednabil. [address] , [address], [place], [place], [facility], [place]. tel:[phone] [facility], [address] [place] [address] [address], [place], [place], [address], [place] tel:[phone] [facility] No Information Sep-0 7-201 0 Katya Ednabil. [address] , [address], [place], [facility], [place]. tel:[phone] Referring Provider: Tobin Alvarez, [address] [place], [place] [address]ate [address], [place], [place], [facility]. tel:[phone] Office/outpat ient Visit, Est [facility], [address] [place] [address] [address], [place], [place], [address], [place] tel:[phone] [facility] No Information Aug-2 5-201 0 Katya Rudd. [address] , [address], [place], [facility], [place]. tel:[phone] Office/outpat ient Visit, Est [facility], [address] [place] [address] [address], [place], [place], [address], [place] tel:[phone] [facility] No Information Apr-2 8-201 0 Krishnasamy Tl. [address], [place], [facility], [place]. tel:[phone] [facility], [address] [place] [address] [address], [place], [place], [address], [place] tel:[phone] [facility] No Information Dec-2 2-200 9 Krishnasamy Tl. [address], [place], [address], [place]. tel:[phone] Referring Provider: Tl hassan, [facility] [address], [place], [facility]. tel:[phone] [facility], [address] [place] [address] [address], [place], [place], [address], [place] tel:[phone] [facility] No Information 8-200 9 Krishnasamy Tl. [address] [facility] [address], [place], [facility], [place]. tel:[phone] Office/outpat ient Visit, [facility], [address] [place] [address] [address], [place], [place], [address], [place] tel:[phone] [facility] No Information Aug-2 6-200 9 Krishnasamy Tl. [facility] [address], [place], [facility], [place]. tel:[phone] Referring Provider: Tl hassan, [facility] [address], [place], [place], [facility]. tel:[phone] Office/outpat ient Visit, [facility], [address] [place] [address] [address], [place], [place], [address], [place] tel:[phone] [facility] No Information 2 2-200 9 Krishnasamy Tl. [address] [place], [place] [address]ate [facility] [address], [place], [facility], [place]. tel:[phone] Referring Provider: Tl hassan, [facility] Corporate [facility] [address], [place], [facility]. tel:[phone] [facility], [address], [place], [place], [address], [place] tel:[phone] [facility] No Information 200 8 Krishnasamy Tl. [address] [facility] [address], [place], [address], [place]. tel:[phone] Referring Provider: Tl hassan, [facility] [address], [place], [address]. tel:[phone] Office/outpat ient Visit, [facility], [address], [place], [place], [address], [place] tel:[phone] [facility] No Information 8 Krishnasamy Tl. [address] [place], [place] [address]ate [facility] [address], [place], [address], [place]. tel:[phone] [facility], [address], [place], [place], [address], [place] tel:[phone] [facility] No Information 8 Krishnasamy Tl. [address] [facility] [address], [place], [address], [place]. tel:[phone] [facility], [address], [place], [place], [address], [place] tel:[phone] [facility] [place] No Information 8 Krishnasamy Tl. [address] [facility] [address], [place], [address], [place]. tel:[phone] Referring Provider: Tl hassan, [facility] [address], [place], [address]. tel:[phone] [facility], [address], [place], [place], [address], [place] tel:[phone] [facility] No Information Sanket-0 2-200 8 Neda Boothe. [address], [facility], [place]. tel:[phone] Office/outpat ient Visit, [facility], [address], [place], [place], [address], [place] tel:[phone] [facility] No Information 8-200 8 Wankum Miguel. [address] [facility], [place], [place], [address], [place]. tel:[phone] Office/outpat ient Visit, [facility], [address], [place], [place], [address], [place] tel:[phone] [facility] No Information 9-200 7 Wanjackcorina Miguel. [address], [facility] [place], [address], [place]. tel:[phone] Referring Provider: Miguel Alvarez, [address] [place], [address] . tel:[phone] [facility], [address], [place], [place], [address], [place] tel:[phone] [facility] No Information Oct-0 9-200 7 Wankcorina Miguel. [address], [address] [place], [place], [address], [place]. tel:[phone] Referring Provider: Miguel Alvarez, [address] [place], [address] . tel:[phone] [facility], [address], [place], [place], [address], [place] tel:[phone] [facility] No Information Mar-0 5-200 7 Wankum Miguel. [address], [address], [place], [place], [address], [place]. tel:[phone] Family History Family Member Type Diagnosis Age [...]
--- OUTSIDE RECORDS SUMMARY | 2024-11-18 10:17 | XMS_ITS | Clinical Summary ---
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 Name Role Phone Unavailable Primary Care Provider Unavailabl e Social History Tobacco Use Types Packs/Day Years Used Date Smoking Tobacco: Never Assessed Sex and Gender Information Value Date Recorded Sex Assigned at Not on file Legal Sex Male 4:41 PM CDT Gender Identity Not on file Sexual Orientation Not on file Plan of Treatment Health Maintenance Due Date Last Done Comments Colorectal Cancer Screening Colonoscopy (10 Years) 1952 Hepatitis C 1970 DTaP, Tdap and Td Vaccines ( 1 - Tdap) 1971 Pneumococcal Vaccine: 50+ Ye ars (1 of 1 - PCV) 2002 Zoster Vaccines (1 of 2) 2002 COVID-19 Vaccine ( - 2023-2 5 season) 2023 RSV Immunization or 60+ Years (1 - 1-dose 75+ series) 2027 Meningococcal B Vaccine Aged Out No l onger eligible based on patient's age to complete this topic Meningococcal Vaccine Aged Out No paulo robert eligible based on patient's age to complete this topic RSV Immunizations Under 20 Months Aged Out No longer eligible based on patient's age to complete this topic
== END 2024-11-18 09:52 | disposition home or self-care (01) ==
PROVIDERS: PCP Family Medicine; Visit Provider Physician Assistant
DX: M79.89 Other specified soft tissue disorders (principal); M79.606 Pain in leg, unspecified
CPT/HCPCS: 93970

== ENCOUNTER 2024-12-07 09:22 | Outpatient (CLI) | payer MEDICARE, OTHER, SELFPAY ==
--- NOTE | ~2024-12-07 | XR_ITS ---
EXAM/ PROCEDURE: XR foot LT min 3V - 12/07/2024 9:28 CDT HISTORY: 74 years old Male with M79.89 - Other specified soft tissue disorders COMPARISON: None available TECHNIQUE: Three view(s) FINDINGS/ IMPRESSION: There are no fractures or dislocations.Joint space narrowing, subchondral sclerosis, subchondral cyst formation and osteophyte formation, compatible with mild osteoarthritis. Calcaneal enthesopathy. Reviewed, dictated and finalized at location A.
--- NOTE | ~2024-12-07 | XR_ITS ---
Left ankle Technique: AP, oblique, and lateral views were obtained. Clinical History: Other soft tissue disorder Findings: No acute fracture or dislocation is seen. Osseous alignment is anatomic. Ankle mortise and other visualized joint spaces are preserved. Diffuse soft tissue swelling noted about the ankle. Impression: Diffuse soft tissue swelling, nonspecific. No osseous or articular abnormality. Reviewed, dictated and finalized at location . Impression: Diffuse soft tissue swelling, nonspecific. No osseous or articular abnormality.
--- NOTE | ~2024-12-07 | XR_ITS ---
AP and lateral views of the left tibia/fibula Clinical History: Soft tissue disorder Findings: No acute fracture or dislocation is seen. Osseous alignment is anatomic. Joint spaces are p reserved without significant erosive or degenerative change. Possible mild diffuse soft tissue edema. Impression: Possible mild diffuse soft tissue edema, nonspecific. Reviewed, dictated and finalized at [facility]. Impression: Possible mild diffuse soft tissue edema, nonspecific.
== END 2024-12-07 09:23 | disposition home or self-care (01) ==
LOC: MICIMG 09:24
PROVIDERS: PCP Family Medicine; Visit Provider Physician Assistant
DX: M79.89 Other specified soft tissue disorders (principal); M77.32 Calcaneal spur, left foot; M25.472 Effusion, left ankle; M70.962 Unspecified soft tissue disorder related to use, overuse and pressure, left lower leg
CPT/HCPCS: 73590; 73610; 73630

== ENCOUNTER 2024-12-09 08:31 | Outpatient (CLI) | payer MEDICARE, OTHER, SELFPAY ==
--- NOTE | ~2024-12-09 | US_ITS ---
US soft tissue LE LT 12/09/2024 08:58 Indication: Soft tissue disorder. Patient has had 2 rounds of antibiotics. Procedure: High-resolution Limited ultrasound of the left rosa/calf in the area of palpable concern Comparison: No prior studies for comparison. Findings: There is fluid in the superficial interstitium, consistent with edema. No localized abscess or abnormal masses are identified. No significant abnormal vascularity. Impression: 1: Superficial interstitial edema without suspicious fluid collection or mass. Reviewed, dictated and finalized at location A. Impression: 1: Superficial interstitial edema without suspicious fluid collection or mass.
== END 2024-12-09 08:32 | disposition home or self-care (01) ==
LOC: MICIMG 08:33
PROVIDERS: PCP Family Medicine; Visit Provider Physician Assistant
DX: R60.9 Edema, unspecified (principal); M79.89 Other specified soft tissue disorders
CPT/HCPCS: 76882

== ENCOUNTER 2025-02-15 00:59 | Day surgery (SDC) | payer MEDICARE, OTHER, SELFPAY ==
--- OUTSIDE RECORDS SUMMARY | 2010-02-02 03:30 | XMS_ITS | Continuity of Care Document ---
Author Organization 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 Name Role Phone Tobin Aldana Unavailable Unavailable Procedures Procedure Date Post-op Follow-up Visit Post-op Follow-up Visit Laser Surgery Of Eye Office/outpatient Visit, Est Office/outpatient Visit, Est Visual Field Examination(s) Eye Exam & Treatment Refraction Office/outpatient Visit, Est Office/outpatient Visit, Est Fundus Photography W/ Report Visual Field Examination(s) Office/outpatient Visit, Est Post-op Follow-up Visit Laser Surgery Of Eye Eye Exam Established Pt Office/outpatient Visit, Est Office/outpatient Visit, Est Fundus Photography W/ Report Visual Field Examination(s) Eye Exam & Treatment Advance Directives Directive Yes / No Effective Date File Name No Information Encounters Encounter Description Practice Location Reason(s) For Visit Diagnoses Date Provider Providers Copied on Encounter [facility], [address], [place], [place], [id number], [place] tel:[phone] [facility] No Information Oct-1 4-201 0 Katya Rudd. [address] [facility] , [address], [place], [place], [facility], [place]. tel:[phone] [facility], [address] [place] [address] [address], [place], [place], [id number], [place] tel:[phone] [facility] No Information Sep-2 2-201 0 Katya Ednabil. [address] [facility] , [address], [place], [place], [facility], [place]. tel:[phone] [facility], [address] [place] [address] [address], [place], [place], [address], [place] tel:[phone] [facility] No Information Sep-0 7-201 0 Katya Ednabil. [address] [facility] , [address], [place], [place], [facility], [place]. tel:[phone] Referring Provider: Tobin Alvarez, [address] [place], [place] [address]ate Center [address], [place], [place], [facility]. tel:[phone] Office/outpat ient Visit, Est [facility], [address] [place] [address] [address], [place], [place], [address], [place] tel:[phone] [facility] No Information Aug-2 5-201 0 Katya Rudd. [address] [facility] , [address], [place], [facility], [place]. tel:[phone] Office/outpat ient Visit, Est [facility], [address] [place] [address] [address], [place], [place], [address], [place] tel:[phone] [facility] No Information Apr-2 8-201 0 Krishnasamy Tl. [address] [facility] [address], [place], [facility], [place]. tel:[phone] [facility], [address] [place] [address] [address], [place], [place], [id number], [place] tel:[phone] [facility] No Information Dec-2 2-200 9 Krishnasamy Lt[address], [place], [address], [place]. tel:[phone] Referring Provider: Tl hassan, [facility] [address], [place], [place], [facility]. tel:[phone] [facility], [address] [place] [address] [address], [place], [place], [address], [place] tel:[phone] [facility] No Information 8-200 9 Krishnasamy Tl. [address] [facility] [address], [place], [facility], [place]. tel:[phone] Office/outpat ient Visit, [facility], [address] [place] [address] [address], [place], [place], [address], [place] tel:[phone] [facility] No Information Aug-2 6-200 9 Krishnasamy Tl. [facility] [address], [place], [facility], [place]. tel:[phone] Referring Provider: Tl hassan, [facility] [address], [place], [facility]. tel:[phone] Office/outpat ient Visit, [facility], [address] [place] [address] [address], [place], [place], [address], [place] tel:[phone] [facility] No Information 2 2-200 9 Krishnasamy Tl[address] [place], [place] [address]ate [facility] [address], [place], [facility], [place]. tel:[phone] Referring Provider: Tl hassan, [facility] Corporate [facility] [address], [place], [facility]. tel:[phone] [facility], [address], [place], [place], [address], [place] tel:[phone] [facility] No Information 200 8 Krishnasamy Tl. [address] [facility] [address], [place], [address], [place]. tel:[phone] Referring Provider: Tl hassan, [facility] [address], [place], [address]. tel:[phone] Office/outpat ient Visit, [facility], [address], [place], [place], [address], [place] tel:[phone] [facility] No Information 8 Krishnasamy Tl. [address] [place], [place] [address]ate [facility] 102, [place], [address], [place]. tel:[phone] [facility], [address], [place], [place], [address], [place] tel:[phone] [facility] No Information 8 Krishnasamy Tl. [address] [facility] [address], [place], [address], [place]. tel:[phone] [facility], [address], [place], [place], [address], [place] tel:[phone] [facility] [place] No Information 8 Krishnasamy Tl. [address] [facility] [address], [place], [address], [place]. tel:[phone] Referring Provider: Tl hassan, [facility] [address], [place], [address]. tel:[phone] [facility], [address], [place], [place], [address], [place] tel:[phone] [facility] No Information Sanket-0 2-200 8 Neda Boothe. [address], [facility], [place]. tel:[phone] Office/outpat ient Visit, [facility], [address], [place], [place], [address], [place] tel:[phone] [facility] No Information 8-200 8 Wankum Miguel. [address] [facility], [address], [place], [place], [address], [place]. tel:[phone] Office/outpat ient Visit, [facility], [address], [place], [place], [address], [place] tel:[phone] [facility] No Information 9-200 7 Wanjackcorina Miguel. [address], [email or web address] [place], [place], [address], [place]. tel:[phone] Referring Provider: Miguel Alavrez, [address] [place], [address] . tel:[phone] [facility], [address], [place], [place], [address], [place] tel:[phone] [facility] No Information Oct-0 9-200 7 Wankcorina Miguel. [address], [place], [address], [place]. tel:[phone] Referring Provider: Miguel Alvarez, [address] [place], [address] . tel:[phone] [facility], [address], [place], [place], [address], [place] tel:[phone] [facility] No Information Mar-0 5-200 7 Wankum Miguel. [address], [address], [place], [place], [address], [place]. tel:[phone] Family History Family Member Type Diagnosis Age At Onset No Information Payers Payer name Insurance type Covered republican ID Authoriza tion(s) No Information Social History Type Description Quantity Date Captured Comments Sex Male Smoking Status No Information Chief Complaint And Reason For Visit No Information Reason For Referral Reason For Referral No Information History Of Present Illness Encounter Date Complaint History Of Prese nt Illness No Information Functional Status Date Functional Assessmen t No Information Instructions Date Instruction Additional Infor mation No Information Assessments Type Assessment Date No Information Patient Care Teams Name Effective Dates (start - stop) Status Members No Information
[2025-02-04 09:53] VITALS: BMI 35.2
--- OUTSIDE RECORDS SUMMARY | 2025-02-15 01:02 | XMS_ITS | Clinical Summary ---
Author Organization [facility] Address [address] [place] [address] Care Team Providers Care Foundation Maker Name Role Phone Unavailable Primary Care Provider [...] Vaccines (1 of 2) 2002 COVID-19 Vaccine (1 - 2024-2 6 season) 2024 Influenza Adult (#1) 2025 RSV Immunization or 60+ Years (1 - 1-dose 75+ series) 2027 Hepatitis A Vaccines Aged Out No long er eligible based on patient's age to complete this topic Meningococcal B Vaccine Aged Out No l onger eligible based on patient's age to complete this topic Meningococcal Vaccine Aged Out No paulo robert eligible based on patient's age to complete this topic RSV Immunizations Under 20 Months Aged Out No longer eligible based on patient's age to complete this topic
[2025-02-15 10:23] VITALS: BP 143/75; PULSE 100; RESP 20; TEMP 37.2; O2SAT 100
--- NOTE | 2025-02-15 10:36 | SUR.PREOP ---
Patient's blood glucose is 53. Patient stated this morning he checked his blood glucose it was 78, then took all his medications. Patient stated that he feels fine. notified and a verbal read-back order given.
[2025-02-15] MEDS: DEXTROSE 50% 25 GM/50 ML SYRINGE IV PUSH (10:40)
[2025-02-15] MEDS: LACTATED RINGERS 1,000 ML 150 ML IV CONT (10:41)
[2025-02-15] MEDS: DEXTROSE 5%/0.45% SOD CHL 1,000 ML 30 ML IV CONT (10:56)
--- NOTE | 2025-02-15 10:58 | WPDANESEPPF ---
Anes - Initial Pre Proc Eval Procedure: Operation Date: 02/15/25 11:00 Proposed Procedures p Diagnostic Colonoscopy - Steffen Schafer MD Date/Time: 02/15/25 10:58 Surgeon: Steffen Schafer MD Pre Op Diagnosis: Hemorrhage of anus and rectum Patient Data Age: 74 Gender: M Height: 1.78 m Weight: 108.6 kg Last Vital Signs Temp 37.2 C 02/15/25 10:23 Pulse 100 02/15/25 10:23 Resp 20 02/15/25 10:23 BP 143/75 H 02/15/25 10:23 Pulse Ox 100 02/15/25 10:23 O2 Del Method Room Air 02/15/25 10:23 Allergies Allergy/AdvReac Type Severity Reaction Status Date / Time No Known Allergies Allergy Verified 02/15/25 10:10 Home Medications ?Medication ?Instructions ?Recorded ?Confirmed ?Type omega 3-nhb-bub-fish oil 1,000 mg 1 cap PO DAILY 02/13/24 02/15/25 History (120 mg-180 mg) capsule (Fish Oil) dorzolamide 22.3 mg-timolol 6.8 1 drp ophthalmic (eye) BID #30 mL 04/06/24 02/15/25 Rx mg/mL eye drops rosuvastatin 10 mg tablet (Crestor) 10 mg PO DAILY #90 tabs 04/13/24 02/15/25 Rx blood sugar diagnostic (FreeStyle #100 ea 06/04/24 02/04/25 Rx Lite Strips) dulaglutide 4.5 mg/0.5 mL 4.5 mg (0.5 mL) subcut WEEKLY #6 mL 06/22/24 02/15/25 Rx subcutaneous pen injector (Trulicity) empagliflozin 25 mg tablet 25 mg PO DAILY #90 tabs 06/27/24 02/15/25 Rx (Jardiance) lancets 28 gauge (FreeStyle #200 ea 06/27/24 02/04/25 Rx Lancets) lisinopril 30 mg tablet 30 mg PO DAILY #90 tabs 06/27/24 02/15/25 Rx metformin 1,000 mg tablet 1,000 mg PO BID #180 tabs 09/15/24 02/15/25 Rx blood pressure monitor #1 ea 12/01/24 02/04/25 Rx blood-glucose meter (FreeStyle #1 ea 12/01/24 02/04/25 Rx Lite Meter kit) fenofibrate 160 mg tablet 160 mg PO DAILY #90 tabs 12/01/24 02/15/25 Rx hydrochlorothiazide 12.5 mg tablet 12.5 mg PO DAILY #90 tabs 12/24/24 02/15/25 Rx glimepiride 2 mg tablet 1 mg (1/2 x 2 mg) PO BID #90 tabs 01/18/25 02/15/25 Rx latanoprost 0.005 % eye drops 1 drp EACH EYE DAILY #7.5 mL 01/18/25 02/15/25 Rx (Xalatan) Laboratory Tests 02/15/25 10:24 POC Capillary Glucose 53 L* mg/dl (65-105) Patient hx anesthesia problems: none Family hx anesthesia problems: none Results Review: All pre-operative results and documents have been reviewed as part of the pre-operative evaluation. [facility] Past Medical History Medical History Diabetes mellitus with hyperglycemia Obesity Chronic kidney disease, stage 3 unspecified Bladder cancer History of bladder cancer Glaucoma Hypertension Diabetes Surgical History Surgical History History of incision and drainage Incisional drainage of infected cyst, incisional biopsy posterior thigh mass 11/15/21 History of bladder surgery 2008- Refugio Johnson Family History Family History Mother Hypertension Family history of coronary artery disease Father Family history of diabetes mellitus in first degree relative Family history of coronary artery disease Other Diabetes mellitus Social History Social History Social History: Patient drinks one diet Pepsi every 2-3 days. Smoking packs per day: 1 Smoking cigarettes per day: 20.0 Years smoked: 20 Smoking pack-years: 20.00 Smoking status: Former smoker Tobacco type: cigarettes Second hand tobacco smoke exposure: No Smoking end date: 04/22/97 Alcohol intake: never Alcohol use details: RARE Substance use: never Substance use type: does not use Last use: 2004 Do You Feel Safe in your Home?: Yes Lack of Transportation: No Lack of Food: Never True Current Housing: I Have Housing Concerned About Future Housing: No Difficulty Paying Gas/Electric Bills: No Difficulty Paying for Meds: No Currently Unemployed: No Education: Bachelor's Degree Difficulty w/ Childcare or Family Care: No Living arrangements: with family Additional living arrangements comments: two people in the home. 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 Gender identity (if verbalized by the patient): Male Sexual Orientation (if Verbalized by the Patient): Straight or Heterosexual Spiritual care concerns: No Anes - Eval Final PreProcedure Day of Procedure 02/15/25 10:58 Patient weight: obese Heart: regular rate and rhythm Lungs: decreased breath sounds Airway: Mallampati scale class II Neurological: alert and oriented Last oral intake: >/= 8 hours ASA classification: III Emergent: no Anesthetic plan: proceed Anesthesia type and monitoring: general and standard monitoring Results Review: All pre-operative results and documents have been reviewed as part of the pre-operative evaluation. Informed Consent: The patient's anesthetic plan and its attendant risks and benefits were discussed with the patient/family/POA. Questions were solicited and answers provided to the satisfaction of the patient/family/POA.
--- NOTE | 2025-02-15 11:00 | PM.HPGS ---
History of Present Illness History of Present Illness Consent: Risks, benefits, and alternatives have been discussed and questions answered. Patient agrees to proceed with procedure. Chief complaint: Hemorrhage of anus and rectum Narrative: Marciano Pride is a 74 year old male with blood in stool, had polyp in 2019 Review of Systems Review of Systems: All systems reviewed & are unremarkable except as noted in HPI and below PMFSH Past Medical History Medical History (Updated 02/15/25 @ 11:00 by Steffen Schafer MD) Rectal bleeding Diabetes mellitus with hyperglycemia Obesity Chronic kidney disease, stage 3 unspecified Bladder cancer History of bladder cancer Glaucoma Hypertension Diabetes Surgical History Surgical History History of incision and drainage Incisional drainage of infected cyst, incisional biopsy posterior thigh mass 11/15/21 History of bladder surgery 2007- [facility] Family History Family History Mother Hypertension Family history of coronary artery disease Father Family history of diabetes mellitus in first degree relative Family history of coronary artery disease Other Diabetes mellitus Social History Social History Social History: Patient drinks one diet Pepsi every 2-3 days. Smoking packs per day: 1 Smoking cigarettes per day: 20.0 Years smoked: 20 Smoking pack-years: 20.00 Smoking status: Former smoker Tobacco type: cigarettes Second hand tobacco smoke exposure: No Smoking end date: 04/22/97 Alcohol intake: never Alcohol use details: RARE Substance use: never Substance use type: does not use Last use: 2005 Do You Feel Safe in your Home?: Yes Lack of Transportation: No Lack of Food: Never True Current Housing: I Have Housing Concerned About Future Housing: No Difficulty Paying Gas/Electric Bills: No Difficulty Paying for Meds: No Currently Unemployed: No Education: Bachelor's Degree Difficulty w/ Childcare or Family Care: No Living arrangements: with family Additional living arrangements comments: two people in the home. 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 Gender identity (if verbalized by the patient): Male Sexual Orientation (if Verbalized by the Patient): Straight or Heterosexual Spiritual care concerns: No Meds Home Medications and Allergies Home Medications ?Medication ?Instructions ?Recorded ?Confirmed ?Type omega 2-jvl-hca-fish oil 1,000 mg 1 cap PO DAILY 02/13/24 02/15/25 History (120 mg-180 mg) capsule (Fish Oil) dorzolamide 22.3 mg-timolol 6.8 1 drp ophthalmic (eye) BID #30 mL 04/06/24 02/15/25 Rx mg/mL eye drops rosuvastatin 10 mg tablet (Crestor) 10 mg PO DAILY #90 tabs 04/13/24 02/15/25 Rx blood sugar diagnostic (FreeStyle #100 ea 06/04/24 02/04/25 Rx Lite Strips) dulaglutide 4.5 mg/0.5 mL 4.5 mg (0.5 mL) subcut WEEKLY #6 mL 06/22/24 02/15/25 Rx subcutaneous pen injector (Trulicity) empagliflozin 25 mg tablet 25 mg PO DAILY #90 tabs 06/27/24 02/15/25 Rx (Jardiance) lancets 28 gauge (FreeStyle #200 ea 06/27/24 02/04/25 Rx Lancets) lisinopril 30 mg tablet 30 mg PO DAILY #90 tabs 06/27/24 02/15/25 Rx metformin 1,000 mg tablet 1,000 mg PO BID #180 tabs 09/15/24 02/15/25 Rx blood pressure monitor #1 ea 12/01/24 02/04/25 Rx blood-glucose meter (FreeStyle #1 ea 12/01/24 02/04/25 Rx Lite Meter kit) fenofibrate 160 mg tablet 160 mg PO DAILY #90 tabs 12/01/24 02/15/25 Rx hydrochlorothiazide 12.5 mg tablet 12.5 mg PO DAILY #90 tabs 12/24/24 02/15/25 Rx glimepiride 2 mg tablet 1 mg (1/2 x 2 mg) PO BID #90 tabs 01/18/25 02/15/25 Rx latanoprost 0.005 % eye drops 1 drp EACH EYE DAILY #7.5 mL 01/18/25 02/15/25 Rx (Xalatan) Allergies Allergy/AdvReac Type Severity Reaction Status Date / Time No Known Allergies Allergy Verified 02/15/25 10:10 Vital Signs Vital Signs - 24 hr 02/15/25 10:23 Temperature 98.9 F Pulse Rate 100 Respiratory Rate 20 Blood Pressure 143/75 H Pulse Oximetry 100 Oxygen Delivery Room Air Exam Const: General: comfortable and no acute distress HENMT: Face/Nose/Sinus: Normal nares present Eyes: General: appearance normal, both eyes and all related structures Neck: Neck: no JVD Resp: Auscultation: clear to auscultation bilaterally Cardio: Rate: regular rate Rhythm: regular rhythm GI: Inspection: non-distended GI Palp: Yes Soft to palpation Skin: General skin exam: normal color Extrem: General: normal to inspection Psych: Mental Status: mental status grossly normal Assessment and Plan Assessment and plan (1) History of colon polyps: Code(s): Z86.010 - Personal history of colon polyps Status: Acute (2) Rectal bleeding: Code(s): K62.5 - Hemorrhage of anus and rectum Status: Acute Assessment and Plan: colonoscopy
--- NOTE | 2025-02-15 11:22 | S_PTH ---
PATIENT: Marciano Pride LOC: [facility]#:[id number] AGE/SX: 74/M ROOM: RE02/15/[address]: Steffen Schafer MD : [id number] BED: DIS: 02/15/2025 SPEC #: [id number] RECD: 02/15/25 12:44 STATUS: MARGARITA REVincenzo #: [id number] MONICA: 02/15/25 11:[address]: Steffen Schafer DEPT: [facility] Surgical RECD BY: Tyrese Beverly ENTERED: 02/15/25 12:46 SP TYPE: Surgical OTHR DR: Clive Cochran MD Tissues: A - Colon Polypectomy B - Colon Polypectomy C - Colon Polypectomy Procedures: Hematoxylin and Eosin Stain Gross and Microscopic Level 4
[2025-02-15 11:25] VITALS: BP 92/51; PULSE 76; RESP 20; O2SAT 98
[2025-02-15 11:35] VITALS: BP 124/54; PULSE 77; RESP 18; O2SAT 98
[2025-02-15 11:45] VITALS: BP 129/53; PULSE 78; RESP 18; O2SAT 98
--- NOTE | 2025-02-15 12:01 | SUR.PHASEII ---
Went through some diabetic and hypoglycemic education with the patient and family member before he was discharged. Printed instructions were added to the discharge packet. Patient stated when he normally checks sugar he is around 70 or 80 in the morning. He plans to go to lunch once discharged and does not have any hypoglycemic symptoms at this time. Patient and family member did not have any questions at this time.
== END 2025-02-15 12:09 | disposition home or self-care (01) ==
PROVIDERS: PCP Family Medicine; Visit Provider Internal Medicine Gastroenterology
PROC: 0DJD8ZZ Inspection of Lower Intestinal Tract, Via Natural or Artificial Opening Endoscopic (ICD-10-PCS; CPT 45378; principal; 2025-02-15 11:00)
DX: K63.5 Polyp of colon (principal); K64.8 Other hemorrhoids; E11.65 Type 2 diabetes mellitus with hyperglycemia; E11.22 Type 2 diabetes mellitus with diabetic chronic kidney disease; I12.9 Hypertensive chronic kidney disease with stage 1 through stage 4 chronic kidney disease, or unspecified chronic kidney disease; N18.30 Chronic kidney disease, stage 3 unspecified; E66.9 Obesity, unspecified; Z68.34 Body mass index [BMI] 34.0-34.9, adult; Z79.85 Long-term (current) use of injectable non-insulin antidiabetic drugs; Z79.84 Long term (current) use of oral hypoglycemic drugs; Z98.890 Other specified postprocedural states; Z87.891 Personal history of nicotine dependence; Z85.51 Personal history of malignant neoplasm of bladder; Z82.49 Family history of ischemic heart disease and other diseases of the circulatory system
CPT/HCPCS: 45385; 82948; 88305; J2003; J2704; J7120